=== PATIENT | female | born 2000 | race Hispanic/Latino ===

== ENCOUNTER 2024-09-23 21:47 | Emergency (ER) | payer BC, SELFPAY ==
[2024-09-23 21:50] VITALS: BP 144/100
[2024-09-23 22:11] LABS: % Basophils 0.5 % (0-2); % Eosinophils 4.1 % (0-6); % Immature Granulocytes 0.1 % (0-0.5); % Lymphocytes 18.7 % (20.5-51.1); % Monocytes 6.4 % (1.7-9.3); % Neutrophils 70.2 % (42.2-75.2); Absolute Eosinophils 0.3 10^3/uL (0-0.7); Absolute Lymphocytes 1.4 10^3/uL (1.2-3.4); Absolute Monocytes 0.5 10^3/uL (0.1-0.6); Absolute Neutrophils 5.1 10^3/uL (1.4-6.5); Hematocrit 43.5 % (37.0-47.0); Hemoglobin 14.6 g/dL (12.0-16.0); Mean Corp Hgb Conc. 33.6 g/dL (33.0-37.0); Mean Corpuscular Volume 89.3 fL (81.0-99.0); Mean Platelet Volume 9.2 fL (7.4-10.4); Nucleated Red Blood Cells % 0 %; Platelet Count 217 10^3/uL (130-400); Red Blood Cell Count 4.87 10^6/uL (4.20-5.40); Red Cell Dist. Width 12.5 % (11.5-14.5); White Blood Cell Count 7.3 10^3/uL (4.8-10.8)
[2024-09-23 22:21] LABS: HCG, Serum Qualitative Screen Negative
[2024-09-23 22:23] LABS: ALT (SGPT) 23 U/L (0-35); AST (SGOT) 29 U/L (14-36); Albumin 5.2 g/dl (3.5-5.0); Alkaline Phosphatase 81 U/L (38-126); Blood Urea Nitrogen 11 mg/dl (7-17); Calcium 9.1 mg/dl (8.4-10.2); Carbon Dioxide 25 mmol/L (22-30); Chloride 103 mmol/L (98-107); Glucose 92 mg/dl (70-99); Lipase 61 U/L (23-300); Sodium 138 mmol/L (135-145); Total Bilirubin 0.5 mg/dl (0.2-1.3); Total Protein 8.4 g/dl (6.3-8.2); eGFR > 60.00
[2024-09-23 22:29] LABS: COVID-19 Antigen Negative (Negative)
--- NOTE | 2024-09-23 22:43 | ED.GENMED ---
History of Present Illness
General
Chief Complaint: Abdominal Symptoms
Source: patient and family
Exam Limitations: none
Time Seen by Provider: 09/23/24 22:34
Nursing documentation reviewed up to this point in time: agreed with
History of Present Illness
History of Present Illness:
Patient presents to ED secondary to persistent abdominal pain, associated with multiple vomiting episodes since yesterday afternoon. Abdominal pain described as sharp, nonradiating, without any alleviating or exacerbating factors. Patient reports
loss of appetite. Denies diarrhea. Denies trauma. Denies recent travel. Denies sick contact. Denies recent change in medications or diet. Patient otherwise is healthy without any significant medical history.
Review of Systems
Review of Systems
Allergies reviewed?: Yes
All Other Systems: ROS reviewed and negative except as documented in HPI and ROS
Constitutional: Reports no symptoms
EENT: Reports no symptoms
Respiratory: Reports no symptoms
Cardiac: Reports no symptoms
ABD/GI: Reports abdominal pain, nausea and vomiting; Denies diarrhea
Musculoskeletal: Reports no symptoms
Skin: Reports no symptoms
Neurological: Reports no symptoms
Phy Exam
Physical Exam
Physical Exam:
Physical Exam
General: mild distress, not acutely ill. afebrile.
Head: nc/at. eomi
Neck: supple. normal range of motion.
Heart: s1/s2 regular rate and rhythm, no murmur. equal radial pulses.
Lungs: no acute respiratory distress. clear bilaterally
Abdomen: normal bowel sounds. mild lisa-umbilical tenderness to palpation.
Neuro: alert and oriented x 3. no focal neurological deficits
Skin: no rash
Psychiatric: well kept. interactive and cooperative
Extremities: no edema. no calf tenderness.
Course
Orders/Labs/Results
Orders:
Orders
09/23/24 21:52
Test Result ONCE
09/23/24 22:04
COVID-19 Antigen Urgent
Source: Nasal Swab
Complete Blood Count/With Diff Urgent
Influenza A+B Rapid Molecular Urgent
MILLY Source: Nasal Swab
Specimen Description:
09/23/24 22:05
Comprehensive Metabolic Panel Urgent
HCG, Serum Qualitative Screen Urgent
Lipase Urgent
09/23/24 22:42
CT Abd/pelvis W Iv Cont Urgent
Comment:
Reason For Exam: lisa-umbilical/lower abdominal pain
09/23/24 22:43
0.9% Sodium Chloride 1000 ml [Nss] 1,000 ml IV BOLUS
Ondansetron Injectable [Zofran] 4 mg IV NOW STA
Pantoprazole [Protonix IV] 40 mg IV NOW STA
09/24/24 01:05
Ketorolac [Toradol] 30 mg IV NOW STA
Ondansetron Orally Disint [Zofran Odt (Orally Disintegrating)] 4 mg PO NOW STA
Abnormal Lab Results
09/23/24 09/23/24
22:04 22:05
Lymphocytes % 18.7 L %
(20.5-51.1)
Total Protein 8.4 H g/dl
(6.3-8.2)
Albumin 5.2 H g/dl
(3.5-5.0)
09/23/24 22:04
09/23/24 22:05
Vital Signs
Initial and Last Documented VS:
Initial Vital Signs
Temp Pulse Resp BP Pulse Ox
98.4 F 84 16 144/100 100
09/23/24 21:50 09/23/24 21:50 09/23/24 21:50 09/23/24 21:50 09/23/24 21:50
Last Documented Vital Signs
Temp Pulse Resp BP Pulse Ox
98.4 F 87 22 122/73 99
09/23/24 21:50 09/24/24 01:05 09/24/24 01:05 09/24/24 01:05 09/24/24 01:05
MDM/Problems Addressed
MDM/Problems Addressed:
Patient with an unremarkable workup in ED, including blood work and CT pelvis. Patient remains afebrile and hemodynamically stable. Patient with nonspecific abdominal pain, likely viral versus less likely musculoskeletal in etiology. Patient will
be discharged home in stable condition, to the care of her mother, with recommendation to continue fluid administration home, along with Tylenol/Motrin for pain relief. Patient will be given prescription for Zofran, to be utilized upon discharge.
*Critical Care Note
Total Time (30-74mins, 75-104mins- exclusive of procedures): Not Applicable
ED Attending Note
-
Portions of this chart may have been created with voice recognition software.� Occasional wrong word or��sound alike� substitutions may have occurred due to the inherent limitations of voice recognition software.
Discharge Plan
Departure
Patient Disposition: Home (Routine Discharge)
Date of Disposition: 09/24/24
Time of Disposition: 01:06
Patient with high blood pressure during this ER visit?: Yes
Condition: Good
Discharge Problem:
Abdominal pain
Instructions: Abdominal Pain
Prescriptions:
New
ondansetron 4 mg Tablet,Disintegrating
4 mg PO TIDPRN PRN (Reason: nausea/vomiting) Qty: 12 0RF
Referrals:
NONE,* [Family Provider] -
Activity Restrictions/Additional Instructions:
As discussed, please follow-up with your primary care physician with any further concerns. Please consider to ED with worsening symptoms, i.e. fever/worsening pain/vomiting. Your prescription has been sent electronically to [facility] pharmacy in
[place].
Interventions
Interventions:
*Risk Screen - Suicide Last Done: 09/24/24 01:32
*General Assessment Last Done: 09/23/24 21:52
*Neglect/Abuse Screening Last Done: 09/24/24 01:32
ED- Fall Risk Assessment Last Done: 09/24/24 00:01
*ED COVID-19 Vaccine History Last Done: 09/24/24 01:32
*Nursing Disposition Last Done: 09/24/24 01:32
SO-Mbisdy-Koricjyayj Assessment Last Done: 09/24/24 00:01
Discharge Date and Time
Discharge Date/Time: 09/24/24 01:33
Print Language: HUNGARIAN
[2024-09-23] MEDS: ZOFRAN 4 MG IV (23:35)
[2024-09-23] MEDS: PROTONIX IV 40 MG IV (23:35)
[2024-09-23] MEDS: NSS 1000 IV (23:35)
[2024-09-23 23:42] VITALS: BMI 34.5
[2024-09-23 23:45] VITALS: BP 127/74
[2024-09-24] VITALS: BP 127/74
[2024-09-24 01:05] VITALS: BP 122/73
[2024-09-24] MEDS: ZOFRAN ODT (ORALLY DISINTEGRATING) 4 MG PO (01:08)
[2024-09-24] MEDS: TORADOL 30 MG IV (01:08)
== END 2024-09-24 01:33 | disposition home or self-care (01) ==
LOC: EMR 21:47
PROVIDERS: EMERGENCY PHYSICIAN Emergency Medicine
DX: R10.9 Unspecified abdominal pain (principal); R11.2 Nausea with vomiting, unspecified
CPT/HCPCS: 96374; 96375; 96361; 99284; 74177; 80053; 83690; 84703; 85025; 87502; 87811; Q9967